=== PATIENT | male | born 1965 | race Hispanic/Latino ===

== ENCOUNTER 2025-01-13 10:29 | Outpatient (CLI) | payer OTHER | END 2025-01-13 10:30 | disposition home or self-care (01) | LOC: CSHCT 10:29 | PROVIDERS: ATTEND Family Medicine | DX: Z12.2 Encounter for screening for malignant neoplasm of respiratory organs (principal); F17.210 Nicotine dependence, cigarettes, uncomplicated | CPT/HCPCS: 71271 ==